=== PATIENT | male | born 1980 | race American Indian/Alaskan Native ===

== ENCOUNTER 2018-06-15 12:11 | Emergency (ER) | payer OTHER ==
[2018-06-15 12:22] VITALS: RESP 18; TEMP 98; BMI 23.7
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
[2018-06-15 14:48] VITALS: BP 142/76; PULSE 73; O2SAT 99
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
== END 2018-06-15 15:50 | disposition home or self-care (01) ==
LOC: ED 12:11
DX: M25.511 Pain in right shoulder (principal); M25.551 Pain in right hip